=== PATIENT | male | born 1935 | race Caucasian/White ===

== ENCOUNTER 2023-01-15 11:15 | Emergency (ER) | payer MEDICARE, OTHER ==
[~2023-01-15] VITALS: Ht 170.2 cm; Wt 86.4 kg
[~2023-01-15 11:15] MED LIST: BISOPROLOL-HCT1 EACH PO; DONEPEZIL HCL5 MG PO; JANUVIA100 MG PO; JARDIANCE25 MG PO; LIPITOR10 MG PO; MEMANTINE HCL E28 MG PO; RAMIPRIL10 MG PO
[2023-01-15 12:40] VITALS: BP 126/64
== END 2023-01-15 12:40 | disposition home or self-care (01) ==
LOC: ED 11:15
DX: S20.211A Contusion of right front wall of thorax, initial encounter (principal); W10.1XXA Fall (on)(from) sidewalk curb, initial encounter; I10 Essential (primary) hypertension; E11.9 Type 2 diabetes mellitus without complications; E78.5 Hyperlipidemia, unspecified; Z79.899 Other long term (current) drug therapy
CPT/HCPCS: 71101; 99283-25